=== PATIENT | male | born 1950 | race Caucasian/White ===

== ENCOUNTER 2019-04-23 18:57 | Emergency (ER) | payer MEDICARE ==
[~2019-04-23] VITALS: Ht 172.7 cm; Wt 56.0 kg
[~2019-04-23 18:57] MED LIST: ARTHRITIS PAIN650 MG OR; ASPIRIN LOW DOS81 MG PO; BL ADULT ASA81 MG PO; CEPHALEXIN500 MG OR; CLINORIL150 MG OR; FLUARIX QUADRIV1 INJ IM; FLUZONE SPLT1 M1 IM; IBUPROFEN600 MG OR; IBUPROFEN600 MG PO; MECLIZINE25 M1 PO; MELOXICAM15 MG PO; MELOXICAM7.5 MG PO; NO HOME MEDS; PLAVIX75 MG PO; PROVENTIL0.083 % IN; TYLENOL ARTH650 M1 OR; ZITHROMAX250 MG PO
[2019-04-23 20:17] VITALS: BP 116/68
[2019-04-23] MEDS ORDERED: CODEINE/GUAIFEN1 SOL PO (20:18)
== END 2019-04-23 20:25 | disposition home or self-care (01) ==
LOC: ED 18:57
DX: R05 Cough (principal); R06.02 Shortness of breath; J44.9 Chronic obstructive pulmonary disease, unspecified; Z85.118 Personal history of other malignant neoplasm of bronchus and lung; Z90.2 Acquired absence of lung [part of]

== ENCOUNTER 2020-02-21 | Emergency (ER) | payer MEDICARE ==
[~2020-02-21] MED LIST changes: +CODEINE/GUAIFEN1 SOL PO
[2020-02-21] MEDS ORDERED: BACTRIM DS1 TAB PO (21:09)
== END 2020-02-21 21:32 | disposition home or self-care (01) ==
DX: S61.244A Puncture wound with foreign body of right ring finger without damage to nail, initial encounter (principal); S61.041A Puncture wound with foreign body of right thumb without damage to nail, initial encounter; W26.8XXA Contact with other sharp object(s), not elsewhere classified, initial encounter; W45.8XXA Other foreign body or object entering through skin, initial encounter; Y93.89 Activity, other specified; Y92.828 Other wilderness area as the place of occurrence of the external cause

== ENCOUNTER 2021-01-23 11:47 | Observation (INO) | payer MEDICARE ==
[~2021-01-23] VITALS: Ht 172.7 cm; Wt 63.0 kg
[~2021-01-23 11:47] MED LIST changes: +BACTRIM DS1 TAB PO
[2021-01-23 13:31] LABS: HEMOGLOBIN 14.5 g/dl (14.0-18.0); IMMATURE GRANULOCYTES 0.2 % (0.0-5.0); MEAN CELL VOLUME 97.8 fL CALC (80.0-100.0); MEAN CORPUSCULAR HGB 31.5 pG CALC (26.0-32.0); MEAN CORPUSCULAR HGB CONC 32.2 g/dL CAL (32.0-36.0); NEUT# 3.86 thou/uL (1.82-7.42); RED BLOOD COUNT 4.6 mill/uL (4.70-6.10); RED CELL DISTRI WIDTH 12.5 % (11.5-15.5)
[2021-01-23 13:45] LABS: ALBUMIN 4.8 g/dL (3.2-5.0); ALKALINE PHOSPHATASE 59 u/l (38-126); ANION GAP 12 (6-22 (CALC)); BUN 14 mg/dL (8-23); BUN/CREATININE RATIO 17 (12-20 (CALC)); CARBON DIOXIDE 26 mmol/l (22-30); CHLORIDE 103 mmol/l (95-108); CREATININE 0.8 mg/dL (0.7-1.3); GFR > 60 ML/MIN (>=60 (CALC)); GFR FOR AFR.AMER. > 60 ML/MIN (>=60 (CALC)); POTASSIUM 4.7 mmol/l (3.5-5.1); SGOT/AST 26 u/l (19-48); SODIUM 135 mmol/l (137-146); TOTAL PROTEIN 8.3 g/dL (6.3-8.2)
[2021-01-23 13:46] LABS: BILIRUBIN, TOTAL 0.8 mg/dL (0.0-1.4)
[2021-01-23 18:25] VITALS: BP 167/91
[2021-01-24 00:15] VITALS: BP 96/50
[2021-01-24 04:00] VITALS: BP 138/77
[2021-01-24 06:16] LABS: HEMATOCRIT 40.7 % (39.0-50.0); HEMOGLOBIN 12.9 g/dl (14.0-18.0); MEAN CELL VOLUME 98.5 fL CALC (80.0-100.0); MEAN CORPUSCULAR HGB 31.2 pG CALC (26.0-32.0); MEAN CORPUSCULAR HGB CONC 31.7 g/dL CAL (32.0-36.0); RED BLOOD COUNT 4.13 mill/uL (4.70-6.10); RED CELL DISTRI WIDTH 12.4 % (11.5-15.5)
[2021-01-24 06:37] LABS: ANION GAP 11 (6-22 (CALC)); BUN 17 mg/dL (8-23); BUN/CREATININE RATIO 19 (12-20 (CALC)); CALCULATED LDLCHOLESTEROL 96 mg/dL (62-129 (CALC)); CARBON DIOXIDE 24 mmol/l (22-30); CHLORIDE 105 mmol/l (95-108); CHOLESTEROL HDL RATIO 3.5 (<4.4 (CALC)); CREATININE 0.9 mg/dL (0.7-1.3); GFR > 60 ML/MIN (>=60 (CALC)); GFR FOR AFR.AMER. > 60 ML/MIN (>=60 (CALC)); HDL CHOLESTEROL 47 mg/dL (>=40); POTASSIUM 4.2 mmol/l (3.5-5.1); SODIUM 135 mmol/l (137-146); TOTAL CHOLESTEROL 165 mg/dl (0-199); TOTAL TRIGLYCERIDES 116 mg/dl (30-149); VLDL CHOLESTROL 23 mg/dl (0-38 (CALC))
[2021-01-24 07:25] VITALS: BP 139/63
[2021-01-24 12:04] VITALS: BP 149/79
[2021-01-24 15:25] VITALS: BP 147/82
[2021-01-24] MEDS ORDERED: ASPIRIN 81 LOW81 MG PO (17:01)
== END 2021-01-24 17:31 | disposition home or self-care (01) ==
LOC: ED 11:47 → ED-I 15:47 → ED 16:02 → MS2 16:03
PROVIDERS: Family Medicine; Nurse Practitioner; ADMIT Internal Medicine; ATTEND Internal Medicine
DX: G45.9 Transient cerebral ischemic attack, unspecified (principal); I10 Essential (primary) hypertension; J44.9 Chronic obstructive pulmonary disease, unspecified; F17.200 Nicotine dependence, unspecified, uncomplicated; Z85.118 Personal history of other malignant neoplasm of bronchus and lung; Z90.2 Acquired absence of lung [part of]; Z20.822 Contact with and (suspected) exposure to COVID-19
CPT/HCPCS: G0378; J1650; Q9967